=== PATIENT | male | born 1965 | race African-American/Black ===

== ENCOUNTER 2024-08-22 15:11 | Emergency (ER) | payer MEDICAID ==
[~2024-08-22] VITALS: Ht 172.7 cm; Wt 118.0 kg
[2024-08-22 15:13] VITALS: O2SAT 99
[2024-08-22] MEDS: MAGNESIUM/ALUMINUM HYDROXIDE/SIMETHICONE 30ML UDC PO ONE (16:18)
[2024-08-22] MEDS: FAMOTIDINE 20MG TABLET PO ONE (16:18)
[2024-08-22] MEDS: ACETAMINOPHEN 325MG TABLET PO ONE (16:18)
[2024-08-22 18:01] VITALS: BP 154/76; PULSE 77; RESP 15; TEMP 36.66960; O2SAT 98
[2024-08-22 18:06] LABS: BASOPHILS % 0.5 % (0.0-2.0); EOSINOPHILS % 1.8 % (0.0-5.0); HEMATOCRIT. 42.2 % (42.0-52.0); HEMOGLOBIN. 13.9 g/dL (14.0-18.0); LYMPHOCYTES % 26.8 % (20.0-50.0); MEAN CORPUSCULAR HEMOGLOBIN 30.4 pg (28.0-32.0); MEAN CORPUSCULAR HGB CONC 32.9 g/dL (31.0-37.0); MEAN CORPUSCULAR VOLUME 92.3 fL (80.0-94.0); MEAN PLATELET VOLUME 8.2 fl (7.4-10.4); MONOCYTES % 7.2 % (2.0-8.0); NEUTROPHILS % 63.7 % (40.0-76.0); PLATELET 224 x1000/uL (130-400); RED BLOOD CELL COUNT 4.57 mill/uL (4.7-6.1); RED CELL DISTRIBUTION WIDTH 14.5 % (11.6-14.6)
[2024-08-22 18:24] LABS: CHLORIDE 103 mEq/L (98-107); POTASSIUM 3.9 mEq/L (3.5-5.1); SODIUM 138 mEq/L (136-145)
[2024-08-22 18:25] LABS: CARBON DIOXIDE 29 mEq/L (21-32)
[2024-08-22 18:26] LABS: CALCIUM 9.2 mg/dL (8.7-10.4)
[2024-08-22 18:30] LABS: CREATININE 0.9 mg/dL (0.6-1.3); GLUCOSE 84 mg/dL (70-105); TROPONIN I HIGH SENSITIVITY 7 ng/L (3.0-53)
[2024-08-22 18:31] LABS: UREA NITROGEN BLOOD 17 mg/dL (9-23)
[2024-08-22 18:32] LABS: ALANINE AMINOTRANSFERASE < 7 IU/L (10-49); ASPARTATE AMINOTRANSFERASE 9 IU/L (<34)
[2024-08-22 18:33] LABS: BILIRUBIN DIRECT 0.2 mg/dL (<=3.0); BILIRUBIN TOTAL 0.9 mg/dL (0.1-1.0); PROTEIN TOTAL 6.8 g/dL (6.0-8.3)
== END 2024-08-22 22:59 | disposition home or self-care (01) ==
LOC: ER 15:11
DX: R55 Syncope and collapse (principal); I10 Essential (primary) hypertension; Z88.6 Allergy status to analgesic agent; Z99.3 Dependence on wheelchair
CPT/HCPCS: 36415; 71045; 74176; 80048; 80076; 83880; 84484; 85025; 93005; 99285